=== PATIENT | female | born 1975 | race Two or more races ===

== ENCOUNTER 2018-06-13 20:55 | Emergency (ER) | payer SELFPAY ==
[~2018-06-13] VITALS: Ht 162.6 cm; Wt 72.6 kg
[2018-06-13] MEDS: KETOROLAC TROMETH 30 MG/ML 1ML VIAL IV ONE ×2 (12:40→23:20)
[2018-06-13] MEDS: methylPREDNISolone SOD SUCC 125 MG/2 ML VL IV ONE ×2 (12:40→23:30)
[2018-06-13] MEDS ORDERED: methylPREDNISolone SOD SUCC 125 MG/2 ML VL IM ONE (22:45)
[2018-06-13] MEDS ORDERED: KETOROLAC TROMETH 60MG/2ML VIAL IM ONE (22:45)
[2018-06-14 01:10] VITALS: BP 135/88
== END 2018-06-14 01:20 | disposition short-term general hospital (02) ==
LOC: ER 20:55
DX: S82.851A Displaced trimalleolar fracture of right lower leg, initial encounter for closed fracture (principal); W19.XXXA Unspecified fall, initial encounter; Y93.89 Activity, other specified; Y99.8 Other external cause status; Y92.89 Other specified places as the place of occurrence of the external cause
CPT/HCPCS: 29125; 73610; 96374; 96375; 99285; J1885; J2930